=== PATIENT | female | born 1930 | race Hispanic/Latino ===

== ENCOUNTER 2016-12-20 15:25 | Emergency (ER) | payer MEDICARE, OTHER ==
--- NOTE | 2016-12-20 16:06 | RAD ---
EXAM DESCRIPTION: Ankle,Right 3 Views CLINICAL HISTORY: 85 years Female, bruising IMPRESSION: 3 views of the right ankle reveal circumferential edema, osteopenia and extensive vascular calcifications. Plantar spur noted. The ankle mortise and syndesmosis are intact. No evidence of a fracture or osseous lesion Electronically signed by: Oskar Fenton MD 12/20/2016 4:05 PM CDT
[2016-12-20 16:39] VITALS: TEMP 98.2
[2016-12-20 17:23] VITALS: BP 157/55; O2SAT 93
--- NOTE | 2016-12-20 17:59 | US ---
PROCEDURE: Venous,Lower Extremity RT CLINICAL HISTORY and INDICATION: Pain in the lateral calf for two days. History of varicose veins COMPARISON: None. TECHNIQUE: Warner scale imaging with duplex interrogation of the right lower extremity venous system was performed and multiple static images were obtained. FINDINGS: Utilizing compression and augmentation, there is no deep venous thrombus in the common femoral, superficial femoral or popliteal veins. The posterior tibial and deep peroneal veins are patent and compressible. . The greater saphenous vein at the saphenofemoral junction is patent and compressible. There is no visualization of any subcutaneous fluid collections. There is no visualization of any fluid collections in the right popliteal fossa. There is no evidence of reactive or pathological lymphadenopathy in the evaluated right lower extremity. IMPRESSION: No deep venous thrombosis of the right lower extremity. Location of Interpretation: [id number] Electronically signed by: Cheng Maria MD 12/20/2016 5:59 PM CDT
--- NOTE | 2016-12-20 18:08 | ED.PDOC ---
History of Present Illness - General Chief Complaint: Lower Extremity Injury Stated Complaint: right ankle pain Time Seen by Provider: 12/20/16 15:38 Source: patient, family Exam Limitations: language barrier - family member helps to translate - History of Present Illness Initial Comments: the patient is an 85-year-old female presenting to the emergency room secondary to pain to the lateral aspect of her right lower leg. The patient does have known significant varicose veins. The patient sustained a mild injury to that leg a few weeks ago due to her grandchildren has some bruising to the inner aspect of the leg. No evidence of infectious cellulitis is present. No scratches. No obvious abscess. She does have chronic edema of the lower extremity. Edema has largely not changed. Timing/Duration: 1 week Severity: mild Improving Factors: nothing Worsening Factors: movement Associated Symptoms: denies symptoms Allergies/Adverse Reactions: Allergies NO KNOWN ALLERGY Allergy (Verified 07/29/16 16:45) Home Medications: Ambulatory Orders Amlodipine Besylate [Norvasc] 10 mg PO DAILY 07/29/16 Glimepiride 4 mg PO BID 07/29/16 Lisinopril 40 mg PO DAILY 07/29/16 Metformin HCl 1,000 mg PO BID 07/29/16 Trazodone HCl 50 mg PO BEDTIME 07/29/16 Albuterol Inhaler [Ventolin Hfa Inhaler] 1 - 2 puff INH Q4HR PRN #1 inh Azithromycin Tab [Zithromax Tab] 500 mg PO BEDTIME #3 tab 08/01/16 Cefdinir [Omnicef] 300 mg PO BID #14 cap 08/01/16 Gabapentin [Neurontin] 300 mg PO BID #0 cap 08/01/16 Review of Systems - Review of Systems Review of Systems: 12/20/16 18:08 review of systems is for new symptoms for the last few weeks only Constitutional: States: no symptoms reported EENTM: States: no symptoms reported Respiratory: States: no symptoms reported Cardiology: States: no symptoms reported Gastrointestinal/Abdominal: States: no symptoms reported Genitourinary: States: no symptoms reported Musculoskeletal: States: see HPI Skin: States: see HPI Neurological: States: no symptoms reported All other Systems: No Change from Baseline Past Medical History (General) - Patient Medical History Hx Seizures: No Hx Stroke: Yes - 1992 Hx Asthma: No Hx of COPD: No Hx Congestive Heart Failure: No Hx Pacemaker: No Hx Hypertension: Yes Hx Diabetes: Yes Hx MRSA: No Surgical History: cholecystectomy - Vaccination History Hx Tetanus, Diphtheria Vaccination: No Hx Influenza Vaccination: Yes Hx Pneumococcal Vaccination: Yes - Social History Hx Tobacco Use: No Hx Alcohol Use: No Hx Substance Use: No Hx Substance Use Treatment: No Hx Depression: No Hx Physical Abuse: No Hx Emotional Abuse: No - Female History Patient : No Family Medical History - Family History Mother Family History: Unknown Living Status: Age at (years of age): 65 Cause of : cancer Hx Family Asthma: No Hx Family Congestive Heart Failure: No Hx Family Hypertension: No Hx Family Stroke: No Hx Cardiac Disease: No Hx Family Diabetes: Yes Hx Family Cancer: Yes Father Living Status: Age at (years of age): 35 Cause of : Murdered Hx Family Asthma: No Hx Family Congestive Heart Failure: No Hx Family Hypertension: No Hx Family Stroke: No Hx Cardiac Disease: No Hx Family Diabetes: No Hx Family Cancer: No Physical Exam - Physical Exam General Appearance: Alert, Comfortable, No apparent distress Eye Exam: bilateral normal Ears, Nose, Throat: hearing grossly normal, normal ENT inspection Neck: non-tender, full range of motion, supple Respiratory: chest non-tender, lungs clear, normal breath sounds, no respiratory distress, no accessory muscle use Cardiovascular/Chest: normal peripheral pulses, no edema, other - regular rate Peripheral Pulses: radial,right: 2+, radial,left: 2+, dorsalis pedis,right: 2+, dorsalis pedis,left: 2+ Rectal Exam: deferred Extremity: normal capillary refill, pedal edema, other - the patient has significant edema bilaterally which is apparently chronic. Her right lower extremity is tender to palpation over the distal third of her lateral lower leg on the right. There are palpable varicose veins that are tender to palpation. No evidence of infectious cellulitis at this time. Neurologic: alert, normal mood/affect, oriented x 3 Skin Exam: normal color - mild increased warmth to the right lower extremity over the area of the varicose veins Comments: Vital Signs - 24 hr 12/20/16 12/20/16 16:00 17:00 Temperature 98.2 F Pulse Rate [ 76 71 Left Brachial] Respiratory 16 16 Rate Blood Pressure 154/96 157/55 [left brachial] O2 Sat by Pulse 94 L 93 L Oximetry Progress - Progress Progress: 12/20/16 18:10 the patient's an 85-year-old female that appears to be having pain from her varicose veins on her right lower extremity. The patient needs to obtain compression stockings to be used on that lower extremity while she is up and around during the day. I see no evidence of infection at this time, this antibiotics are not warranted at this time. No evidence of DVT was seen on ultrasound and x-ray of the area shows no evidence of fracture. ER warnings are given for any acute worsening. She needs to follow up with her primary care doctor later in the week. - Results/Orders Results/Orders: x-ray of the right ankle shows no evidence of fracture or dislocation. There are significant osteoarthritic changes and osteoporosis. Ultrasound of the veins of the right lower extremity showed no evidence of DVT. Departure - Departure Clinical Impression: Varicose veins of right lower extremity with pain Disposition: Discharge to Home or Self Care Condition: Fair Departure Forms: ED Discharge - Pt. Copy, Patient Portal Self Enrollment Instructions: DI for Varicose Veins, Treatment of Varicose Veins of the Leg Diet: diabetic diet Activity: increase activity as tolerated Referrals: MARCELL STANFORD [Primary Care Provider] - 1-5 Days Home Medications: Ambulatory Orders Amlodipine Besylate [Norvasc] 10 mg PO DAILY 07/29/16 Glimepiride 4 mg PO BID 07/29/16 Lisinopril 40 mg PO DAILY 07/29/16 Metformin HCl 1,000 mg PO BID 07/29/16 Trazodone HCl 50 mg PO BEDTIME 07/29/16 Albuterol Inhaler [Ventolin Hfa Inhaler] 1 - 2 puff INH Q4HR PRN #1 inh Azithromycin Tab [Zithromax Tab] 500 mg PO BEDTIME #3 tab 08/01/16 Cefdinir [Omnicef] 300 mg PO BID #14 cap 08/01/16 Gabapentin [Neurontin] 300 mg PO BID #0 cap 08/01/16 Additional Instructions: the patient's an 85-year-old female that appears to be having pain from her varicose veins on her right lower extremity. The patient needs to obtain compression stockings to be used on that lower extremity while she is up and around during the day. I see no evidence of infection at this time, this antibiotics are not warranted at this time. No evidence of DVT was seen on ultrasound and x-ray of the area shows no evidence of fracture. ER warnings are given for any acute worsening. She needs to follow up with her primary care doctor later in the week.
== END 2016-12-20 18:21 | disposition home or self-care (01) ==
LOC: ER 15:25
DX: I83.811 Varicose veins of right lower extremity with pain (principal); I10 Essential (primary) hypertension; E11.9 Type 2 diabetes mellitus without complications; Z86.73 Personal history of transient ischemic attack (TIA), and cerebral infarction without residual deficits; Z79.899 Other long term (current) drug therapy

== ENCOUNTER 2017-04-12 11:17 | Emergency (ER) | payer MEDICARE, MEDICAID ==
[2017-04-12] MEDS ORDERED: SODIUM CHLORIDE 0.9% (FLUSH) 10 ML SYG IV PRN (11:54)
[2017-04-12] MEDS ORDERED: SODIUM CHLORIDE 0.9% 1000ML 1,000 ML IVS ONE (11:56)
[2017-04-12] MEDS ORDERED: MECLIZINE HCL 12.5 MG TAB PO ONE (11:57)
--- NOTE | 2017-04-12 11:59 | ED.PDOC ---
History of Present Illness - General Chief Complaint: General Stated Complaint: dizziness,pain in left eye and left head Time Seen by Provider: 04/12/17 11:54 Source: patient, family Exam Limitations: language barrier - History of Present Illness Initial Comments: PT PRESENTS TO THE ED WITH DAUGHTER WITH COMPLAINT OF DIZZINESS DESCRIBED VERTIGO ASSOCIATED WITH LEFT SIDED FACIAL PAIN, AND LEFT SIDED HEADACHE FOR THE PAST 2 DAYS. PT DENIES, FEVER, CVA SYMPTOMS, SOB, OR CHEST PAIN. Timing/Duration: other - 2 DAYS Severity: moderate Improving Factors: immobilization, rest Worsening Factors: movement Associated Symptoms: headaches Allergies/Adverse Reactions: Allergies NO KNOWN ALLERGY Allergy (Verified 07/29/16 16:45) Home Medications: Ambulatory Orders Amlodipine Besylate [Norvasc] 10 mg PO DAILY 07/29/16 Glimepiride 4 mg PO BID 07/29/16 Lisinopril 40 mg PO DAILY 07/29/16 Metformin HCl 1,000 mg PO BID 07/29/16 Gabapentin [Neurontin] 300 mg PO BID #0 cap 08/01/16 Review of Systems - Review of Systems Constitutional: Denies: chills, fever EENTM: States: see HPI, eye pain, nose congestion Respiratory: Denies: cough, short of breath Cardiology: Denies: chest pain, palpitations Gastrointestinal/Abdominal: Denies: abdominal pain, diarrhea, nausea Musculoskeletal: Denies: back pain, joint swelling Skin: Denies: change in color, lesions Neurological: States: no symptoms reported Endocrine: States: no symptoms reported Past Medical History (General) - Patient Medical History Hx Seizures: No Hx Stroke: Yes - 1992 Hx Asthma: No Hx of COPD: No Hx Cardiac Disorders: No Hx Congestive Heart Failure: No Hx Pacemaker: No Hx Hypertension: Yes Hx Diabetes: Yes Hx MRSA: No Surgical History: cholecystectomy - Vaccination History Hx Tetanus, Diphtheria Vaccination: No Hx Influenza Vaccination: Yes Hx Pneumococcal Vaccination: Yes Immunizations Up to Date: Yes - Social History Hx Tobacco Use: No Hx Alcohol Use: No Hx Substance Use: No Hx Substance Use Treatment: No Hx Depression: No Hx Physical Abuse: No Hx Emotional Abuse: No - Female History Patient : No Family Medical History - Family History Mother Family History: Unknown Living Status: Age at (years of age): 65 Cause of : cancer Hx Family Asthma: No Hx Family Congestive Heart Failure: No Hx Family Hypertension: No Hx Family Stroke: No Hx Cardiac Disease: No Hx Family Diabetes: Yes Hx Family Cancer: Yes Father Living Status: Age at (years of age): 35 Cause of : Murdered Hx Family Asthma: No Hx Family Congestive Heart Failure: No Hx Family Hypertension: No Hx Family Stroke: No Hx Cardiac Disease: No Hx Family Diabetes: No Hx Family Cancer: No Physical Exam - Physical Exam General Appearance: Alert, Comfortable, No apparent distress Eye Exam: bilateral normal Ears, Nose, Throat: hearing grossly normal, normal ENT inspection, sinus pain/ drainage Neck: non-tender, full range of motion, supple Respiratory: lungs clear, normal breath sounds, no respiratory distress Cardiovascular/Chest: regular rate, rhythm, systolic murmur Gastrointestinal/Abdominal: normal bowel sounds, non tender, soft Back Exam: normal inspection Extremity: normal range of motion Neurologic: no motor/sensory deficits, alert, normal mood/affect Skin Exam: normal color, warm/dry Progress - Progress Progress: 04/12/17 13:40 PT RESTING COMFORTABLY, LABS AND CT FINDINGS DISCUSSED WITH FAMILY AT BEDSIDE. DISCUSSED PLAN TO TRANSFER FOR MRI AND NEUROSURGICAL EVALUATION. FAMILY STATES THAT PCP IS IN [place] AND THEY ARE USUALLY TRANSFERRED TO [place]. - Results/Orders Results/Orders: 04/12/17 11:54 Telemetry .ONCE Sodium Chloride 0.9% (Flush) [Saline Flush Syringe] 10 ml IV PRN PRN 04/12/17 12:00 EKG STAT 04/12/17 13:05 URINE CULTURE W/COLONY COUNT Stat Laboratory Results WBC 11.9 K/mm3 (4.8-10.8) H 04/12/17 12:10 RBC 4.55 M/mm3 (4.20-5.40) 04/12/17 12:10 Hgb 12.6 gm/dL (12.0-16.0) 04/12/17 12:10 Hct 38.2 % (36.0-47.0) 04/12/17 12:10 MCV 84.0 fl (81.0-99.0) 04/12/17 12:10 MCH 27.8 pg (27.0-31.0) 04/12/17 12:10 MCHC 33.1 g/dL (33.0-37.0) 04/12/17 12:10 RDW 14.0 % (11.5-14.5) 04/12/17 12:10 Plt Count 307 K/mm3 (130-400) 04/12/17 12:10 MPV 8.0 fl (7.40-10.4) 04/12/17 12:10 Absolute Neuts (auto) 9.00 K/uL (1.8-6.8) H 04/12/17 12:10 Absolute Lymphs (auto) 2.00 K/uL (1.0-3.4) 04/12/17 12:10 Absolute Monos (auto) 0.70 K/uL (0.2-0.8) 04/12/17 12:10 Absolute Eos (auto) 0.30 K/uL (0.0-0.4) 04/12/17 12:10 Absolute Basos (auto) 0.00 K/uL (0.0-0.1) 04/12/17 12:10 Neutrophils % 75.4 % (42.0-78.0) 04/12/17 12:10 Lymphocytes % 16.6 % (20.0-50.0) L 04/12/17 12:10 Monocytes % 5.6 % (2.0-9.0) 04/12/17 12:10 Eosinophils % 2.1 % (1.0-5.0) 04/12/17 12:10 Basophils % 0.3 % (0.0-2.0) 04/12/17 12:10 PT 11.3 SECONDS (9.4-12.5) 04/12/17 12:10 INR 1.000 04/12/17 12:10 PTT (SP) 28.2 SECONDS (25.1-36.5) 04/12/17 12:10 Sodium 138 mmol/L (135-145) 04/12/17 12:10 Potassium 4.7 mmol/L (3.6-5.0) 04/12/17 12:10 Chloride 103 mmol/L (101-111) 04/12/17 12:10 Carbon Dioxide 26 mmol/L (21-31) 04/12/17 12:10 Anion Gap 13.7 (12-18) 04/12/17 12:10 BUN 21 mg/dL (7-18) H 04/12/17 12:10 Creatinine 1.00 mg/dL (0.6-1.3) 04/12/17 12:10 BUN/Creatinine Ratio 21.0 (10-20) H 04/12/17 12:10 POC Glucose 180 mg/dL (70-105) H 04/12/17 12:10 Random Glucose 194 mg/dL (70-105) H 04/12/17 12:10 Serum Osmolality 284.0 mOsm/L (275-295) 04/12/17 12:10 Calcium 9.4 mg/dL (8.4-10.2) 04/12/17 12:10 Total Bilirubin 0.5 mg/dL (0.2-1.0) 04/12/17 12:10 AST 18 IU/L (10-42) 04/12/17 12:10 ALT 11 IU/L (10-60) 04/12/17 12:10 Alkaline Phosphatase 72 IU/L (42-121) 04/12/17 12:10 Creatine Kinase 53 IU/L (26-140) 04/12/17 12:10 CK-MB (CK-2) 1.1 ng/mL (0.0-4.4) 04/12/17 12:10 CK-MB (CK-2) % Not Reportable 04/12/17 12:10 Troponin I < 0.02 ng/mL (0.01-0.05) 04/12/17 12:10 Serum Total Protein 7.7 gm/dL (6.4-8.2) 04/12/17 12:10 Albumin 3.8 g/dl (3.2-5.5) 04/12/17 12:10 Globulin 3.9 gm/dL (2.3-3.5) H 04/12/17 12:10 Albumin/Globulin Ratio 1.0 (1.1-1.9) L 04/12/17 12:10 Urine Color Yellow (Yellow) 04/12/17 13:05 Urine Appearance Clear (Clear) 04/12/17 13:05 Urine pH 6.5 (4.5-7.8) 04/12/17 13:05 Ur Specific Sharon 1.010 (1.005-1.030) 04/12/17 13:05 Urine Protein 30 mg/dL 04/12/17 13:05 Urine Glucose (UA) Negative mg/dL (Negative) 04/12/17 13:05 Urine Ketones Negative mg/dL (NEGATIVE) 04/12/17 13:05 Urine Blood Trace-lysed (Negative) H 04/12/17 13:05 Urine Nitrite Negative 04/12/17 13:05 Urine Bilirubin Negative (NEGATIVE) 04/12/17 13:05 Urine Urobilinogen 0.2 mg/dL (0.2-1.0) 04/12/17 13:05 Ur Leukocyte Esterase Small (Negative) H 04/12/17 13:05 Urine RBC 1-3 /hpf 04/12/17 13:05 Urine WBC 5-10 /hpf H 04/12/17 13:05 Ur Epithelial Cells 0-1 /hpf 04/12/17 13:05 Urine Bacteria 1+ 04/12/17 13:05 - EKG/XRAY/CT EKG: Sinus - @73BPM, NL INTERVALS, NL AXIS, Unchanged from - 07/29/16 CT Ordered: Yes CT Interpretation Call Back: Yes - CASE DISCUSSED WITH RADIOLOGIST, CT SHOWS RIGHT FRONTAL LOBE MASS Departure - Departure Clinical Impression: Intracranial mass, Vertigo Time of Disposition: 14:12 Disposition: Transfer to Hospital Condition: Fair Departure Forms: ED Discharge - Pt. Copy, Patient Portal Self Enrollment Referrals: MARCELL STANFORD [Primary Care Provider] - 1-2 Weeks Home Medications: Ambulatory Orders Amlodipine Besylate [Norvasc] 10 mg PO DAILY 07/29/16 Glimepiride 4 mg PO BID 07/29/16 Lisinopril 40 mg PO DAILY 07/29/16 Metformin HCl 1,000 mg PO BID 07/29/16 Gabapentin [Neurontin] 300 mg PO BID #0 cap 08/01/16 Transfer to Outside Facility - Transfer Information Accepting Provider:: DR. HARRIS Accepting Facility: [facility] Reason for Transfer: required specialist not available
--- NOTE | 2017-04-12 12:58 | RAD ---
EXAM DESCRIPTION: Chest,1 View CLINICAL HISTORY: DIZZINESS, HYPOXIA COMPARISON: 01 August 2016 TECHNIQUE: AP portable chest FINDINGS: Lungs are clear. The heart is enlarged. No pleural fluid is identified. IMPRESSION: Cardiomegaly is observed without evidence of congestive heart failure. Exam is otherwise unremarkable. Electronically signed by: Stevo Starkey MD 04/12/2017 12:56 PM CDT
--- NOTE | 2017-04-12 13:26 | CT ---
Study: CT of the Head. Indication: DIZZINESS, VERTIGO Technique: Axial CT images of the head were acquired without intravenous contrast. This exam was performed according to our departmental dose-optimization program, which includes automated exposure control, adjustment of the mA and/or kV according to patient size and/or use of iterative reconstruction technique. Comparison: None. Findings: A high right frontal mass noted and appears to be extra-axial with involvement of the right frontal calvarium. The mass measures approximately 3.5 cm AP by 3.2 cm transverse with a lytic component of the calvarium measuring up to 1.9 cm. There is surrounding vasogenic edema and mass effect on the right frontal lobe. Mild mass effect with 3 mm left to right midline shift. No hydrocephalus. The mass is high density and partially calcified. It could reflect a meningioma but given the lytic appearance of the calvarium, a metastasis is favored. There are several additional subtle lucent foci throughout the calvarium, which could reflect additional metastases. No definite additional intraparenchymal lesions identified. Patchy hypoattenuation of the periventricular and subcortical white matter noted. This is nonspecific but most consistent with chronic microvascular ischemic change. Global parenchymal volume loss and intracranial atherosclerosis noted as well. Mastoid air cells are adequately aerated. Paranasal sinuses are adequately aerated. Mild narrowing of the left ostiomeatal unit due to mucosal thickening. Aerated ethmoid air cells superior to the anterior ethmoidal canals noted. Impression: 1. Large extra-axial right frontal mass with involvement of the right calvarium concerning for an aggressive lesion such as a metastasis. Mass effect and mild midline shift noted. Questionable additional calvarial lesions noted. Further characterization with MRI brain with and without intravenous contrast recommended. 2. Senescent changes. 3. Findings and recommendations were discussed with Dr. Baptiste at 1320 hours on 04/12/2017. Electronically signed by: Chin Santos MD 04/12/2017 1:24 PM CDT
[2017-04-12 15:05] VITALS: BP 119/52; TEMP 97.7; O2SAT 97
== END 2017-04-12 15:05 | disposition short-term general hospital (02) ==
LOC: ER 11:17
DX: R94.02 Abnormal brain scan (principal); R42 Dizziness and giddiness; I10 Essential (primary) hypertension; E11.9 Type 2 diabetes mellitus without complications; Z86.73 Personal history of transient ischemic attack (TIA), and cerebral infarction without residual deficits; Z79.899 Other long term (current) drug therapy
CPT/HCPCS: 36415; 70450; 70486; 71010; 80053; 81001; 82550; 82553; 82948; 84484; 85025; 85610; 85730; 87086; 93005; J7030

== ENCOUNTER 2017-08-26 12:02 | Emergency (ER) | payer MEDICARE, MEDICAID ==
[2017-08-26 12:44] VITALS: TEMP 98.9; O2SAT 95
--- NOTE | 2017-08-26 13:51 | RAD ---
EXAM DESCRIPTION: Chest,1 View CLINICAL HISTORY: SOB COMPARISON: December 11, 2016. FINDINGS: Portable frontal view the thorax. When accounting for technique, the lungs are clear. Heart size is normal. Ectasia of thoracic aorta seen with chronic hypertension. Osseous structures maintained. IMPRESSION: Negative for acute cardiopulmonary disease. Electronically signed by: Domo Chen MD 08/26/2017 1:50 PM MORTAR MIXER OPERATOR
[2017-08-26 15:18] VITALS: BP 153/72
--- NOTE | 2017-08-26 15:39 | CT ---
EXAM DESCRIPTION: Head: Computed Tomography. CLINICAL HISTORY: RIGHT SIDED HEADACHE, WEAKNESS COMPARISON: CT scan of the head without IV contrast 04/12/2017. TECHNIQUE: Non-helical axial scans through the skull and brain, at 2.5 mm intervals, non-contrast. Coronal and sagittal 2.0 mm reconstructions. Total Exam DLP: 773.97 mGy-cm. This exam was performed according to our departmental dose-optimization program which includes automated exposure control, adjustment of the mA and/or kV according to patient size and/or use of iterative reconstruction technique; to reduce radiation dose to as low as reasonably achievable (ALARA). FINDINGS: Again noted is a partially calcified lobulated mass with increased density compared to cortical harris matter and subcortical white matter, with mass effect on the right frontal lobe and the superior left temporal lobe. Surrounded by low density material most likely CSF on the inferior margin. Associated with defect in the left frontal calvarium and anterior table of the skull. This is stable since the prior study. Transverse measurements at the upper segment of the mass are 4.3 x 2.1 cm. More inferiorly, the measurements are 3.5 x 3.2 cm. Oblique craniocaudal dimension is 3.8 cm. Stable since the prior study. Degree of calcification and mass effect is stable since the prior study. There may be a trace amount of left shift of the falx but this is stable. Ventricles are stable in size since the prior study with no evidence of obstruction. Again noted bilaterally periventricular white matter low-density. Age-related appearance of the remaining cortical sulci and basilar cisterns and CSF spaces. No mass effect on the midbrain and brainstem or posterior fossa. The bony calvarium is otherwise unremarkable. Stable calcifications in the falx ,choroid plexus, and pineal gland. Diffuse soft tissue involving the bilateral anterior ethmoid air cells more than the posterior cells. Bilateral air-fluid levels in the maxillary antra. Sphenoid and frontal sinuses are unremarkable. IMPRESSION: 1. Partially calcified superior right frontal lobe mass associated with erosion in the inner table of the right frontal bone with mass effect on right frontal lobe and trace amount of midline shift. Stable size since the prior study. Appearance, location, and agent patient suggest higher grade meningioma. No herniation or intra-axial/extra-axial hemorrhage. 2. Other age-related changes in the brain are stable. 3. Progression in paranasal acute and chronic sinusitis since the prior study. Correlate with clinical history. Electronically signed by: Geovanni An MD 08/26/2017 3:38 PM CUSTOMER LIAISON
--- NOTE | 2017-08-26 15:53 | ED.PDOC ---
History of Present Illness - General Chief Complaint: Neuro Symptoms/Deficits Stated Complaint: DIZZINESS Time Seen by Provider: 08/26/17 12:58 Source: patient Exam Limitations: no limitations Additional Information: WEAKNESS AND RIGHT SIDED FRONTAL HEADACHE. SHE VOICES THAT SHE HAS A LEFT FRONTAL MENINGIOMA THAT IS OBSERVED BY A NEUROLOGIST IN [facility]. DENIES ANY FEVER. - History of Present Illness Timing/Duration: 1 week Severity: moderate Improving Factors: nothing Worsening Factors: nothing Associated Symptoms: denies symptoms Allergies/Adverse Reactions: Allergies NO KNOWN ALLERGY Allergy (Verified 07/29/16 16:45) Home Medications: Ambulatory Orders Amlodipine Besylate [Norvasc] 10 mg PO DAILY 07/29/16 Glimepiride 4 mg PO BID 07/29/16 Lisinopril 40 mg PO DAILY 07/29/16 Metformin HCl 1,000 mg PO BID 07/29/16 Gabapentin [Neurontin] 300 mg PO BID #0 cap 08/01/16 Amoxicillin [Amoxil] 500 mg PO BID 08/26/17 Doxycycline Hyclate 100 mg PO TID 08/26/17 Review of Systems - Review of Systems Constitutional: States: no symptoms reported EENTM: States: nose congestion, other - FACIAL AND RIGHT ORBITAL PAIN Respiratory: States: no symptoms reported Cardiology: States: no symptoms reported Gastrointestinal/Abdominal: States: no symptoms reported Genitourinary: States: no symptoms reported Musculoskeletal: States: no symptoms reported Skin: States: no symptoms reported Neurological: States: anxiety, tremors, weakness Endocrine: States: no symptoms reported Hematologic/Lymphatic: States: no symptoms reported Past Medical History (General) - Patient Medical History Hx Seizures: No Hx Stroke: Yes - 1992 Hx Asthma: No Hx of COPD: No Hx Cardiac Disorders: No Hx Congestive Heart Failure: No Hx Pacemaker: No Hx Hypertension: Yes Hx Diabetes: Yes Hx MRSA: No Surgical History: cholecystectomy - Vaccination History Hx Tetanus, Diphtheria Vaccination: No Hx Influenza Vaccination: Yes Hx Pneumococcal Vaccination: Yes - Social History Hx Tobacco Use: No Hx Alcohol Use: No Hx Substance Use: No Hx Substance Use Treatment: No Hx Depression: No Hx Physical Abuse: No Hx Emotional Abuse: No - Female History Patient : No Family Medical History - Family History Mother Family History: Unknown Living Status: Age at (years of age): 65 Cause of : cancer Hx Family Asthma: No Hx Family Congestive Heart Failure: No Hx Family Hypertension: No Hx Family Stroke: No Hx Cardiac Disease: No Hx Family Diabetes: Yes Hx Family Cancer: Yes Father Living Status: Age at (years of age): 35 Cause of : Murdered Hx Family Asthma: No Hx Family Congestive Heart Failure: No Hx Family Hypertension: No Hx Family Stroke: No Hx Cardiac Disease: No Hx Family Diabetes: No Hx Family Cancer: No Physical Exam - Physical Exam General Appearance: Alert, Anxious, Well Developed, Well Groomed, Well Hydrated Eye Exam: bilateral normal Ears, Nose, Throat: normal ENT inspection, normal pharynx Neck: non-tender, full range of motion, supple, normal inspection Respiratory: chest non-tender, lungs clear, normal breath sounds Cardiovascular/Chest: normal peripheral pulses, regular rate, rhythm, no edema, no gallop Peripheral Pulses: radial,right: 2+, radial,left: 2+ Gastrointestinal/Abdominal: normal bowel sounds, non tender, soft, no organomegaly, no pulsatile mass Rectal Exam: deferred Back Exam: normal inspection Extremity: normal range of motion Neurologic: no motor/sensory deficits, alert, oriented x 3 Skin Exam: normal color Lymphatic: no adenopathy Progress - Results/Orders Results/Orders: SHE [place] [address] OF THE HEAD REVEALS A CALCIFIED MENINGIOMA WITH WORSENING SINUSTITIS. Departure - Departure Clinical Impression: Sinusitis Time of Disposition: 15:57 Disposition: Discharge to Home or Self Care Condition: Good Departure Forms: ED Discharge - Pt. Copy, Patient Portal Self Enrollment Instructions: Sinusitis (Alternative Therapy) Activity: increase activity as tolerated Referrals: MARCELL STANFORD [Primary Care Provider] - 1-2 Weeks Home Medications: Ambulatory Orders Amlodipine Besylate [Norvasc] 10 mg PO DAILY 07/29/16 Glimepiride 4 mg PO BID 07/29/16 Lisinopril 40 mg PO DAILY 07/29/16 Metformin HCl 1,000 mg PO BID 07/29/16 Gabapentin [Neurontin] 300 mg PO BID #0 cap 08/01/16 Amoxicillin [Amoxil] 500 mg PO BID 08/26/17 Doxycycline Hyclate 100 mg PO TID 08/26/17 Additional Instructions: CONTINUE YOUR HOME ANTIBIOTICS AND F/U WITH YOUR DRTyrese NEXT WEEK
== END 2017-08-26 16:20 | disposition home or self-care (01) ==
LOC: ER 12:02
DX: J32.9 Chronic sinusitis, unspecified (principal); E11.9 Type 2 diabetes mellitus without complications; I10 Essential (primary) hypertension; D32.0 Benign neoplasm of cerebral meninges; Z86.73 Personal history of transient ischemic attack (TIA), and cerebral infarction without residual deficits